=== PATIENT | male | born 1960 | race African-American/Black ===

== ENCOUNTER 2019-01-03 20:02 | Emergency (ER) | payer OTHER ==
--- NOTE | 2019-01-03 20:14 | PDOC ---
Rapid Medical Evaluation Time Seen by Provider: 01/03/19 20:13 Medical Evaluation: 01/03/19 20:13 I have performed a brief in-person evaluation of this patient. The patient presents with a chief complaint of: eye infection Pertinent physical exam findings:stable and in NAD, non-focal I have ordered the following: provider to determine The patient will proceed to the ED for further evaluation.
[2019-01-03 20:17] VITALS: BP 105/64; PULSE 76; TEMP 97.9; BMI 28.7
[2019-01-03] MEDS ORDERED: FLUORESCEIN NA 1 EA STRIP ONE (22:27)
--- NOTE | 2019-01-03 22:33 | PDOC ---
History of Present Illness - General Chief Complaint: Eye Problem Stated Complaint: R EYE PAIN Time Seen by Provider: 01/03/19 20:13 - History of Present Illness Initial Comments: 01/03/19 22:30 58-year-old male with a past medical history of CVA on anticoagulation presents for 4 days of right eye irritation. Seen at another emergency room given an antibiotic eyedrop without relief. Past History - Past Medical History Home Medications: Ambulatory Orders Ciprofloxacin 0.3% Eye Drops [Ciloxan 0.3% Eye Drops --] 2 drop OD Q4HWA #1 bottle 01/03/19 COPD: No CHF: No - Psycho Social/Smoking Cessation Hx Smoking History: Never smoked Have you smoked in the past 12 months: No Information on smoking cessation initiated: No Hx Alcohol Use: No Drug/Substance Use Hx: No Review of Systems - Review of Systems HEENTM: Yes: Eye Pain, Tearing. No: Blurred Vision *Physical Exam - Vital Signs Last Vital Signs Temp Pulse Resp BP Pulse Ox 97.9 F 76 17 105/64 100 01/03/19 20:15 01/03/19 20:15 01/03/19 20:15 01/03/19 20:15 01/03/19 20:15 - Physical Exam Comments: 01/03/19 22:31 Right eye was stained with fluorescein. The conjunctiva is injected throughout no subconjunctival hemorrhage, multiple corneal abrasion seen without definitive ulceration Medical Decision Making - Medical Decision Making 01/03/19 22:31 Discussed case with emergency room attending. We will change to a stronger antibiotic eyedrop and have patient follow-up with ophthalmology without fail tomorrow Discharge - Discharge Information Problems reviewed: Yes Clinical Impression/Diagnosis: Corneal abrasion Condition: Stable Disposition: HOME - Admission No - Follow up/Referral Referrals: ON STAFF,NOT [Primary Care Provider] - Jose Liu MD [Staff Physician] - Omkar Liu [Non Staff, Medical] - - Patient Discharge Instructions Patient Printed Discharge Instructions: DI for Corneal Abrasion, Corneal Abrasion Additional Instructions: Please use the antibiotic eyedrops as directed. Without fail please follow-up with ophthalmology tomorrow return to the emergency room for worsening symptoms. - Post Discharge Activity
== END 2019-01-03 22:41 | disposition home or self-care (01) ==
LOC: JERFT 20:02
DX: S05.01XA Injury of conjunctiva and corneal abrasion without foreign body, right eye, initial encounter (principal); X58.XXXA Exposure to other specified factors, initial encounter; Y93.9 Activity, unspecified; Y92.89 Other specified places as the place of occurrence of the external cause; Y99.8 Other external cause status
CPT/HCPCS: 99281-25